=== PATIENT | female | born 1960 | race African-American/Black ===

== ENCOUNTER → 2016-05-16 | Outpatient (CLI) | payer MEDICAID ==
[~2016-05-16] MED LIST: ASPIR LOW81 MG PO; CELEXA 20MG20 MG/TA1 PO; CREON 60000 U-11 ECC; INSULIN HUMA100 U/ML; KLOR-CON M1515 MEQ PO; LANTUS100 U/ML SQ; LISINOPRIL AND1 TA1 PO; MYRBETRIQ50 MG PO; OMEPRAZOLE40 MG PO; RANITIDINE HCL300 M1 PO; ROSUVASTATIN CA10 MG PO; TIAZAC240 M1 PO; VALIUM 5MG T5 MG/TAB PO; ZOLPIDEM TART10 MG PO
== END ==
LOC: LAB 13:48
DX: I10 Essential (primary) hypertension (principal); E78.2 Mixed hyperlipidemia; E10.65 Type 1 diabetes mellitus with hyperglycemia

== ENCOUNTER → 2016-11-15 | Outpatient (CLI) | payer MEDICAID ==
[2016-01-19 11:35] VITALS: BP 142/88
== END ==
LOC: LAB 12:12
DX: E10.8 Type 1 diabetes mellitus with unspecified complications (principal); B18.2 Chronic viral hepatitis C; I10 Essential (primary) hypertension; E78.5 Hyperlipidemia, unspecified

== ENCOUNTER → 2017-02-14 | Outpatient (CLI) | payer MEDICAID ==
[2016-01-19 11:35] VITALS: BP 142/88
[2017-02-14 15:47] LABS: EOS # 0.1 (0.04-0.40); EOS % 0.7 % (1.0-5.0); HEMATOCRIT 43.6 % (37.0-47.0); HEMOGLOBIN 14.6 g/dL (12.5-16.0); LYMPH# 2.3 (1.50-4.00); MEAN CELL VOLUME 88 fl (78-100); MEAN CORPUSCULAR HEMOGLOBIN 30 pg (27-31); MEAN CORPUSCULAR HGB CONC 34 g/dL (33-37); MEAN PLATELET VOLUME 10.7 fl (7.4-10.4); MONO # 0.5 (0.20-0.80); NEU # 5.7 (1.40-6.50); PLATELET COUNT 292 K/mm3 (130-400); RED BLOOD COUNT 4.94 M/mm3 (4.10-5.30); RED CELL DISTRIBUTION WIDTH 13.9 % (11.5-14.5); WHITE BLOOD COUNT 8.6 K/mm3 (4.8-10.8)
[2017-02-14 16:02] LABS: BUN/CREATININE RATIO 11.3 (6.0-26.0); CALCIUM 9.2 mg/dL (8.4-10.2); POTASSIUM 4.3 mmol/L (3.6-5.0); TOTAL BILIRUBIN 0.7 mg/dL (0.2-1.3); TOTAL PROTEIN 7.7 g/dL (6.3-8.2)
[2017-02-14 16:19] LABS: URINE APPEARANCE CLEAR; URINE BILIRUBIN NEGATIVE (NEGATIVE); URINE BLOOD NEGATIVE (NEGATIVE); URINE COLOR YELLOW; URINE KETONE NEGATIVE (NEGATIVE); URINE LEUKOCYTE ESTERASE NEGATIVE (NEGATIVE); URINE NITRATE NEGATIVE (NEGATIVE); URINE PROTEIN(semi-quant) NEGATIVE (NEGATIVE); URINE UROBILINOGEN NORMAL (NORMAL)
== END ==
LOC: LAB 15:28
PROVIDERS: Internal Medicine
DX: E10.65 Type 1 diabetes mellitus with hyperglycemia (principal); K86.1 Other chronic pancreatitis; R32 Unspecified urinary incontinence

== ENCOUNTER → 2017-05-09 | Outpatient (CLI) | payer MEDICAID ==
[2016-01-19 11:35] VITALS: BP 142/88
[2017-05-09 16:34] LABS: EOS # 0.1 (0.04-0.40); EOS % 1.2 % (1.0-5.0); HEMATOCRIT 42.5 % (37.0-47.0); HEMOGLOBIN 13.8 g/dL (12.5-16.0); LYMPH# 2.5 (1.50-4.00); MEAN CELL VOLUME 89 fl (78-100); MEAN CORPUSCULAR HEMOGLOBIN 29 pg (27-31); MEAN CORPUSCULAR HGB CONC 33 g/dL (33-37); MEAN PLATELET VOLUME 10.6 fl (7.4-10.4); MONO # 0.5 (0.20-0.80); PLATELET COUNT 251 K/mm3 (130-400); RED BLOOD COUNT 4.77 M/mm3 (4.10-5.30); RED CELL DISTRIBUTION WIDTH 13.8 % (11.5-14.5)
[2017-05-09 16:59] LABS: BUN/CREATININE RATIO 11.9 (6.0-26.0); CALCIUM 9.2 mg/dL (8.4-10.2); POTASSIUM 3.7 mmol/L (3.6-5.0); TOTAL BILIRUBIN 0.5 mg/dL (0.2-1.3); TOTAL PROTEIN 7.5 g/dL (6.3-8.2)
[2017-05-09 18:48] LABS: ERYTHROCYTE SEDIMENTATION RATE 16 mm/hr (0-30)
== END ==
LOC: LAB 16:16
PROVIDERS: Internal Medicine
DX: K86.1 Other chronic pancreatitis (principal); E10.65 Type 1 diabetes mellitus with hyperglycemia; R19.7 Diarrhea, unspecified

== ENCOUNTER → 2017-06-06 | Outpatient (CLI) | payer MEDICAID ==
[2016-01-19 11:35] VITALS: BP 142/88
[2017-06-06 16:50] LABS: EOS % 0.3 % (1.0-5.0); HEMATOCRIT 46.5 % (37.0-47.0); LYMPH# 2.6 (1.50-4.00); MEAN CELL VOLUME 90 fl (78-100); MEAN CORPUSCULAR HEMOGLOBIN 29 pg (27-31); MEAN CORPUSCULAR HGB CONC 32 g/dL (33-37); MEAN PLATELET VOLUME 10.7 fl (7.4-10.4); MONO # 0.8 (0.20-0.80); NEU # 8.9 (1.40-6.50); PLATELET COUNT 327 K/mm3 (130-400); RED BLOOD COUNT 5.16 M/mm3 (4.10-5.30); RED CELL DISTRIBUTION WIDTH 13.3 % (11.5-14.5); WHITE BLOOD COUNT 12.4 K/mm3 (4.8-10.8)
[2017-06-06 16:59] LABS: ALBUMIN 4.2 g/dL (3.5-5.0); BUN/CREATININE RATIO 8.2 (6.0-26.0); POTASSIUM 3.8 mmol/L (3.6-5.0); TOTAL BILIRUBIN 0.8 mg/dL (0.2-1.3); TOTAL PROTEIN 8.3 g/dL (6.3-8.2)
== END ==
LOC: LAB 16:10
PROVIDERS: Internal Medicine
DX: E10.65 Type 1 diabetes mellitus with hyperglycemia (principal); K86.1 Other chronic pancreatitis; Z88.5 Allergy status to narcotic agent

== ENCOUNTER → 2017-08-11 | Outpatient (CLI) | payer MEDICAID ==
[~2017-08-11] VITALS: Ht 165.1 cm; Wt 88.2 kg
[2017-08-11 13:15] VITALS: BP 135/77
[2017-08-11 13:40] LABS: EOS # 0.1 (0.04-0.40); EOS % 1.2 % (1.0-5.0); HEMATOCRIT 42.6 % (37.0-47.0); HEMOGLOBIN 13.9 g/dL (12.5-16.0); LYMPH# 2.4 (1.50-4.00); MEAN CELL VOLUME 89 fl (78-100); MEAN CORPUSCULAR HEMOGLOBIN 29 pg (27-31); MEAN CORPUSCULAR HGB CONC 33 g/dL (33-37); MEAN PLATELET VOLUME 11.4 fl (7.4-10.4); MONO # 0.6 (0.20-0.80); NEU # 5.2 (1.40-6.50); PLATELET COUNT 234 K/mm3 (130-400); RED BLOOD COUNT 4.77 M/mm3 (4.10-5.30); RED CELL DISTRIBUTION WIDTH 14.2 % (11.5-14.5); WHITE BLOOD COUNT 8.2 K/mm3 (4.8-10.8)
[2017-08-11 14:28] LABS: BUN/CREATININE RATIO 12.2 (6.0-26.0); POTASSIUM 3.5 mmol/L (3.6-5.0); TOTAL BILIRUBIN 0.4 mg/dL (0.2-1.3); TOTAL PROTEIN 7.4 g/dL (6.3-8.2)
[2017-08-11 14:55] LABS: ERYTHROCYTE SEDIMENTATION RATE 21 mm/hr (0-30)
== END ==
LOC: AMSURD 12:33
PROVIDERS: Internal Medicine
DX: E10.65 Type 1 diabetes mellitus with hyperglycemia (principal); E78.2 Mixed hyperlipidemia; I10 Essential (primary) hypertension; I49.3 Ventricular premature depolarization

== ENCOUNTER → 2017-12-11 | Outpatient (CLI) | payer MEDICAID ==
[~2017-12-11] VITALS: Ht 167.6 cm; Wt 89.5 kg
[~2017-12-11] MED LIST changes: +ACCU-CHEK AVIV1 EACH MC; +ANUSOL-HC25 MG TP; -CREON 60000 U-11 ECC; +CREON 60000 U-11 ECC PO; +DESVENLAFAXINE50 M1 PO; +ERGOCALCIFER50000 IU PO; +MYRBETRIQ25 MG PO; +SYSTANE ULTRA 010 M1 OP
[2017-12-11 14:31] LABS: ALBUMIN 4.1 g/dL (3.5-5.0); CALCIUM 9.3 mg/dL (8.4-10.2); POTASSIUM 4.1 mmol/L (3.6-5.0); TOTAL BILIRUBIN 0.6 mg/dL (0.2-1.3); TOTAL PROTEIN 7.4 g/dL (6.3-8.2)
[2017-12-11 14:33] LABS: EOS # 0.2 (0.04-0.40); EOS % 2.6 % (1.0-5.0); HEMATOCRIT 41.6 % (37.0-47.0); HEMOGLOBIN 14.1 g/dL (12.5-16.0); LYMPH# 2.2 (1.50-4.00); MEAN CELL VOLUME 89 fl (78-100); MEAN CORPUSCULAR HEMOGLOBIN 30 pg (27-31); MEAN CORPUSCULAR HGB CONC 34 g/dL (33-37); MEAN PLATELET VOLUME 11.3 fl (7.4-10.4); MONO # 0.5 (0.20-0.80); NEU # 4.1 (1.40-6.50); PLATELET COUNT 216 K/mm3 (130-400); RED BLOOD COUNT 4.67 M/mm3 (4.10-5.30); RED CELL DISTRIBUTION WIDTH 13.5 % (11.5-14.5)
[2017-12-11 14:45] VITALS: BP 130/78
[2017-12-13 03:24] LABS: HEPATITIS C VIRUS ANTIBODY Reactive (Negative)
== END ==
LOC: AMSURD 13:57
PROVIDERS: Internal Medicine
DX: Z01.818 Encounter for other preprocedural examination (principal); R32 Unspecified urinary incontinence

== ENCOUNTER → 2018-01-23 | Outpatient (CLI) | payer MEDICAID ==
[2017-12-11 14:45] VITALS: BP 130/78
== END ==
LOC: MAMMO 01-09 10:00 → RAD 01-09 10:00
DX: Z13.820 Encounter for screening for osteoporosis (principal)

== ENCOUNTER → 2018-07-06 | Outpatient (CLI) | payer MEDICAID ==
[2017-12-11 14:45] VITALS: BP 130/78
[2018-07-06 12:52] LABS: EOS # 0.2 (0.04-0.40); EOS % 2.6 % (1.0-5.0); HEMATOCRIT 42.1 % (37.0-47.0); HEMOGLOBIN 13.5 g/dL (12.5-16.0); MEAN CELL VOLUME 90 fl (78-100); MEAN CORPUSCULAR HEMOGLOBIN 29 pg (27-31); MEAN CORPUSCULAR HGB CONC 32 g/dL (33-37); MEAN PLATELET VOLUME 10.9 fl (7.4-10.4); MONO # 0.6 (0.20-0.80); PLATELET COUNT 272 K/mm3 (130-400); RED CELL DISTRIBUTION WIDTH 13.8 % (11.5-14.5); WHITE BLOOD COUNT 7.8 K/mm3 (4.8-10.8)
[2018-07-06 12:54] LABS: ALBUMIN 4.4 g/dL (3.5-5.0); CALCIUM 9.3 mg/dL (8.4-10.2); TOTAL BILIRUBIN 0.4 mg/dL (0.2-1.3); TOTAL PROTEIN 7.7 g/dL (6.3-8.2)
[2018-07-06 13:05] LABS: POTASSIUM 3.9 mmol/L (3.6-5.0)
== END ==
LOC: MAMMO 11:38
PROVIDERS: Internal Medicine
DX: Z12.31 Encounter for screening mammogram for malignant neoplasm of breast (principal); E78.5 Hyperlipidemia, unspecified; I10 Essential (primary) hypertension; E10.9 Type 1 diabetes mellitus without complications

== ENCOUNTER → 2018-08-21 | Outpatient (CLI) | payer MEDICAID ==
[2017-12-11 14:45] VITALS: BP 130/78
[2018-08-21 14:53] LABS: EOS # 0.1 (0.04-0.40); EOS % 1.5 % (1.0-5.0); HEMOGLOBIN 9.9 g/dL (12.5-16.0); LYMPH# 1.6 (1.50-4.00); MEAN CELL VOLUME 93 fl (78-100); MEAN CORPUSCULAR HEMOGLOBIN 29 pg (27-31); MEAN CORPUSCULAR HGB CONC 31 g/dL (33-37); MEAN PLATELET VOLUME 9.9 fl (7.4-10.4); MONO # 0.5 (0.20-0.80); NEU # 5.6 (1.40-6.50); PLATELET COUNT 437 K/mm3 (130-400); RED BLOOD COUNT 3.44 M/mm3 (4.10-5.30); RED CELL DISTRIBUTION WIDTH 15.8 % (11.5-14.5); WHITE BLOOD COUNT 7.8 K/mm3 (4.8-10.8)
[2018-08-21 15:08] LABS: ALBUMIN 3.3 g/dL (3.5-5.0); CALCIUM 9.4 mg/dL (8.4-10.2); POTASSIUM 5.1 mmol/L (3.5-5.1); TOTAL BILIRUBIN 0.3 mg/dL (0.2-1.2); TOTAL PROTEIN 7.5 g/dL (6.4-8.3)
== END ==
LOC: LAB 14:26
PROVIDERS: Internal Medicine
DX: Z01.818 Encounter for other preprocedural examination (principal); E10.9 Type 1 diabetes mellitus without complications; I10 Essential (primary) hypertension; E78.5 Hyperlipidemia, unspecified; D64.9 Anemia, unspecified; R32 Unspecified urinary incontinence

== ENCOUNTER → 2018-12-21 | Outpatient (CLI) | payer MEDICAID ==
[2017-12-11 14:45] VITALS: BP 130/78
[2018-12-21 14:38] LABS: EOS # 0.2 (0.04-0.40); HEMATOCRIT 42.5 % (37.0-47.0); HEMOGLOBIN 13.8 g/dL (12.5-16.0); LYMPH# 3.2 (1.50-4.00); MEAN CELL VOLUME 86 fl (78-100); MEAN CORPUSCULAR HEMOGLOBIN 28 pg (27-31); MEAN CORPUSCULAR HGB CONC 33 g/dL (33-37); MEAN PLATELET VOLUME 11.1 fl (7.4-10.4); MONO # 0.7 (0.20-0.80); NEU # 3.8 (1.40-6.50); PLATELET COUNT 225 K/mm3 (130-400); RED BLOOD COUNT 4.92 M/mm3 (4.10-5.30); RED CELL DISTRIBUTION WIDTH 13.8 % (11.5-14.5)
[2018-12-21 14:45] LABS: ALBUMIN 4.2 g/dL (3.5-5.0); POTASSIUM 3.5 mmol/L (3.5-5.1)
[2018-12-21 14:46] LABS: CALCIUM 9.7 mg/dL (8.3-10.5)
[2018-12-21 14:48] LABS: TOTAL PROTEIN 7.7 g/dL (6.4-8.3)
[2018-12-21 14:49] LABS: TOTAL BILIRUBIN 0.5 mg/dL (0.2-1.2)
== END ==
LOC: LAB 14:20
PROVIDERS: Internal Medicine
DX: Z01.818 Encounter for other preprocedural examination (principal); E10.65 Type 1 diabetes mellitus with hyperglycemia; I10 Essential (primary) hypertension; N39.46 Mixed incontinence; E78.2 Mixed hyperlipidemia

== ENCOUNTER → 2019-03-18 | Outpatient (CLI) | payer MEDICAID ==
[2017-12-11 14:45] VITALS: BP 130/78
[2019-03-18 14:16] LABS: ALBUMIN 4.1 g/dL (3.5-5.0)
[2019-03-18 14:17] LABS: POTASSIUM 4.2 mmol/L (3.5-5.1)
[2019-03-18 14:18] LABS: CALCIUM 9.2 mg/dL (8.3-10.5)
[2019-03-18 14:19] LABS: EOS # 0.1 (0.04-0.40); EOS % 1.8 % (1.0-5.0); HEMATOCRIT 41.6 % (37.0-47.0); HEMOGLOBIN 13.2 g/dL (12.5-16.0); LYMPH# 2.4 (1.50-4.00); MEAN CELL VOLUME 90 fl (78-100); MEAN CORPUSCULAR HEMOGLOBIN 29 pg (27-31); MEAN CORPUSCULAR HGB CONC 32 g/dL (33-37); MEAN PLATELET VOLUME 11.3 fl (7.4-10.4); MONO # 0.6 (0.20-0.80); NEU # 4.4 (1.40-6.50); PLATELET COUNT 263 K/mm3 (130-400); RED CELL DISTRIBUTION WIDTH 14.1 % (11.5-14.5); TOTAL PROTEIN 7.6 g/dL (6.4-8.3); WHITE BLOOD COUNT 7.6 K/mm3 (4.8-10.8)
[2019-03-18 14:21] LABS: TOTAL BILIRUBIN 0.3 mg/dL (0.2-1.2)
== END ==
LOC: LAB 13:58
PROVIDERS: Internal Medicine
DX: E10.65 Type 1 diabetes mellitus with hyperglycemia (principal); I10 Essential (primary) hypertension

== ENCOUNTER → 2019-05-13 | Outpatient (CLI) | payer MEDICAID ==
[2017-12-11 14:45] VITALS: BP 130/78
[2019-05-13 14:55] LABS: EOS # 0.2 (0.04-0.40); EOS % 2.1 % (1.0-5.0); HEMOGLOBIN 13.8 g/dL (12.5-16.0); LYMPH# 2.9 (1.50-4.00); MEAN CELL VOLUME 90 fl (78-100); MEAN CORPUSCULAR HEMOGLOBIN 29 pg (27-31); MEAN CORPUSCULAR HGB CONC 32 g/dL (33-37); MEAN PLATELET VOLUME 11.1 fl (7.4-10.4); MONO # 0.7 (0.20-0.80); NEU # 5.1 (1.40-6.50); PLATELET COUNT 242 K/mm3 (130-400); RED BLOOD COUNT 4.78 M/mm3 (4.10-5.30); RED CELL DISTRIBUTION WIDTH 13.5 % (11.5-14.5); WHITE BLOOD COUNT 8.9 K/mm3 (4.8-10.8)
[2019-05-13 14:58] LABS: ALBUMIN 4.3 g/dL (3.5-5.0); POTASSIUM 3.5 mmol/L (3.5-5.1)
[2019-05-13 15:00] LABS: CALCIUM 9.3 mg/dL (8.3-10.5)
[2019-05-13 15:01] LABS: TOTAL PROTEIN 7.9 g/dL (6.4-8.3)
[2019-05-13 15:03] LABS: TOTAL BILIRUBIN 0.3 mg/dL (0.2-1.2)
== END ==
LOC: LAB 14:10
PROVIDERS: Internal Medicine
DX: E10.65 Type 1 diabetes mellitus with hyperglycemia (principal); I10 Essential (primary) hypertension; D64.9 Anemia, unspecified

== ENCOUNTER → 2019-07-18 | Outpatient (CLI) | payer MEDICAID ==
[2017-12-11 14:45] VITALS: BP 130/78
[2019-07-18 14:35] LABS: URINE APPEARANCE CLOUDY; URINE BILIRUBIN NEGATIVE (NEGATIVE); URINE BLOOD NEGATIVE (NEGATIVE); URINE COLOR YELLOW; URINE GLUCOSE NEGATIVE (NEGATIVE); URINE KETONE NEGATIVE (NEGATIVE); URINE LEUKOCYTE ESTERASE NEGATIVE (NEGATIVE); URINE NITRATE NEGATIVE (NEGATIVE); URINE PROTEIN(semi-quant) TRACE mg/dL (NEGATIVE); URINE UROBILINOGEN NORMAL (NORMAL)
[2019-07-18 14:36] LABS: URINE MUCUS PRESENT (NOT PRESENT)
== END ==
LOC: LAB 11:01
PROVIDERS: Internal Medicine
DX: L63.0 Alopecia (capitis) totalis (principal); N30.00 Acute cystitis without hematuria

== ENCOUNTER → 2019-07-30 | Outpatient (CLI) | payer MEDICAID ==
[2017-12-11 14:45] VITALS: BP 130/78
== END ==
LOC: MAMMO 15:11
DX: Z12.31 Encounter for screening mammogram for malignant neoplasm of breast (principal)

== ENCOUNTER → 2019-08-15 | Outpatient (CLI) | payer MEDICAID ==
[2017-12-11 14:45] VITALS: BP 130/78
[2019-08-15 16:04] LABS: EOS # 0.2 (0.04-0.40); HEMATOCRIT 43.2 % (37.0-47.0); HEMOGLOBIN 14.1 g/dL (12.5-16.0); LYMPH# 2.6 (1.50-4.00); MEAN CELL VOLUME 89 fl (78-100); MEAN CORPUSCULAR HEMOGLOBIN 29 pg (27-31); MEAN CORPUSCULAR HGB CONC 33 g/dL (33-37); MEAN PLATELET VOLUME 10.7 fl (7.4-10.4); MONO # 0.6 (0.20-0.80); NEU # 5.5 (1.40-6.50); PLATELET COUNT 273 K/mm3 (130-400); RED BLOOD COUNT 4.84 M/mm3 (4.10-5.30); WHITE BLOOD COUNT 8.9 K/mm3 (4.8-10.8)
[2019-08-15 16:20] LABS: ALBUMIN 4.2 g/dL (3.4-4.8); POTASSIUM 3.9 mmol/L (3.5-5.1)
[2019-08-15 16:21] LABS: CALCIUM 9.4 mg/dL (8.3-10.5)
[2019-08-15 16:23] LABS: TOTAL PROTEIN 7.7 g/dL (6.2-8.1)
[2019-08-15 16:24] LABS: TOTAL BILIRUBIN 0.3 mg/dL (0.2-1.2)
== END ==
LOC: RAD 15:49
PROVIDERS: Internal Medicine
DX: R06.02 Shortness of breath (principal)

== ENCOUNTER → 2019-11-14 | Outpatient (CLI) | payer MEDICAID ==
[2017-12-11 14:45] VITALS: BP 130/78
[2019-11-14 16:13] LABS: EOS # 0.3 (0.04-0.40); HEMATOCRIT 40.4 % (37.0-47.0); HEMOGLOBIN 13.1 g/dL (12.5-16.0); LYMPH# 2.5 (1.50-4.00); MEAN CELL VOLUME 90 fl (78-100); MEAN CORPUSCULAR HEMOGLOBIN 29 pg (27-31); MEAN CORPUSCULAR HGB CONC 32 g/dL (33-37); MEAN PLATELET VOLUME 10.9 fl (7.4-10.4); MONO # 0.7 (0.20-0.80); PLATELET COUNT 233 K/mm3 (130-400); RED CELL DISTRIBUTION WIDTH 13.6 % (11.5-14.5); WHITE BLOOD COUNT 8.4 K/mm3 (4.8-10.8)
[2019-11-14 17:51] LABS: ALBUMIN 4.1 g/dL (3.4-4.8); POTASSIUM 3.5 mmol/L (3.5-5.1)
[2019-11-14 17:54] LABS: TOTAL PROTEIN 7.3 g/dL (6.2-8.1)
[2019-11-14 17:56] LABS: TOTAL BILIRUBIN 0.3 mg/dL (0.2-1.2)
== END ==
LOC: LAB 15:48
PROVIDERS: Internal Medicine
DX: E10.65 Type 1 diabetes mellitus with hyperglycemia (principal); I10 Essential (primary) hypertension; D64.9 Anemia, unspecified

== ENCOUNTER → 2019-12-23 | Outpatient (CLI) | payer MEDICAID ==
[2017-12-11 14:45] VITALS: BP 130/78
[2019-12-23 14:41] LABS: EOS # 0.2 (0.04-0.40); EOS % 2.6 % (1.0-5.0); HEMATOCRIT 42.9 % (37.0-47.0); LYMPH# 2.2 (1.50-4.00); MEAN CELL VOLUME 88 fl (78-100); MEAN CORPUSCULAR HEMOGLOBIN 29 pg (27-31); MEAN CORPUSCULAR HGB CONC 33 g/dL (33-37); MEAN PLATELET VOLUME 10.8 fl (7.4-10.4); MONO # 0.5 (0.20-0.80); NEU # 4.4 (1.40-6.50); PLATELET COUNT 241 K/mm3 (130-400); RED BLOOD COUNT 4.86 M/mm3 (4.10-5.30); RED CELL DISTRIBUTION WIDTH 13.8 % (11.5-14.5); WHITE BLOOD COUNT 7.4 K/mm3 (4.8-10.8)
[2019-12-23 14:52] LABS: ALBUMIN 4.2 g/dL (3.4-4.8); POTASSIUM 3.5 mmol/L (3.5-5.1)
[2019-12-23 14:53] LABS: CALCIUM 9.5 mg/dL (8.3-10.5)
[2019-12-23 14:55] LABS: TOTAL PROTEIN 7.5 g/dL (6.2-8.1)
[2019-12-23 14:56] LABS: TOTAL BILIRUBIN 0.2 mg/dL (0.2-1.2)
== END ==
LOC: LAB 14:29
PROVIDERS: Internal Medicine
DX: E10.65 Type 1 diabetes mellitus with hyperglycemia (principal); D64.9 Anemia, unspecified; I10 Essential (primary) hypertension; K90.9 Intestinal malabsorption, unspecified

== ENCOUNTER → 2020-03-30 | Outpatient (CLI) | payer MEDICAID ==
[2017-12-11 14:45] VITALS: BP 130/78
[2020-03-30 16:22] LABS: EOS # 0.1 (0.04-0.40); EOS % 1.4 % (1.0-5.0); HEMATOCRIT 43.5 % (37.0-47.0); HEMOGLOBIN 14.1 g/dL (12.5-16.0); LYMPH# 3.1 (1.50-4.00); MEAN CELL VOLUME 90 fl (78-100); MEAN CORPUSCULAR HEMOGLOBIN 29 pg (27-31); MEAN CORPUSCULAR HGB CONC 32 g/dL (33-37); MEAN PLATELET VOLUME 10.4 fl (7.4-10.4); MONO # 0.7 (0.20-0.80); NEU # 6.2 (1.40-6.50); PLATELET COUNT 284 K/mm3 (130-400); RED BLOOD COUNT 4.83 M/mm3 (4.10-5.30); RED CELL DISTRIBUTION WIDTH 13.5 % (11.5-14.5); WHITE BLOOD COUNT 10.2 K/mm3 (4.8-10.8)
[2020-03-30 16:31] LABS: ALBUMIN 4.2 g/dL (3.4-4.8); POTASSIUM 3.3 mmol/L (3.5-5.1)
[2020-03-30 16:32] LABS: CALCIUM 9.4 mg/dL (8.3-10.5)
[2020-03-30 16:33] LABS: TOTAL PROTEIN 7.9 g/dL (6.2-8.1)
[2020-03-30 16:35] LABS: TOTAL BILIRUBIN 0.3 mg/dL (0.2-1.2)
== END ==
LOC: LAB 16:10
PROVIDERS: Internal Medicine
DX: I10 Essential (primary) hypertension (principal); E78.2 Mixed hyperlipidemia; E10.65 Type 1 diabetes mellitus with hyperglycemia

== ENCOUNTER → 2020-08-13 | Outpatient (CLI) | payer MEDICAID ==
[2017-12-11 14:45] VITALS: BP 130/78
[2020-08-13 14:43] LABS: BASO # 0.06 (0.02-0.10); EOS # 0.28 (0.04-0.40); HEMATOCRIT 42.7 % (37.0-47.0); HEMOGLOBIN 13.9 g/dL (12.5-16.0); LYMPH# 3.09 (1.50-4.00); MEAN CELL VOLUME 90 fl (78-100); MEAN CORPUSCULAR HEMOGLOBIN 29 pg (27-31); MEAN CORPUSCULAR HGB CONC 33 g/dL (33-37); MEAN PLATELET VOLUME 10.5 fl (7.4-10.4); MONO # 0.61 (0.20-0.80); NEU # 5.22 (1.40-6.50); PLATELET COUNT 274 K/mm3 (130-400); RED BLOOD COUNT 4.77 M/mm3 (4.10-5.30); RED CELL DISTRIBUTION WIDTH 12.6 % (11.5-14.5); WHITE BLOOD COUNT 9.3 K/mm3 (4.8-10.8)
[2020-08-13 14:48] LABS: POTASSIUM 3.6 mmol/L (3.5-5.1)
[2020-08-13 14:49] LABS: CALCIUM 9.4 mg/dL (8.3-10.5)
[2020-08-13 14:51] LABS: TOTAL PROTEIN 7.5 g/dL (6.2-8.1)
[2020-08-13 14:52] LABS: TOTAL BILIRUBIN 0.3 mg/dL (0.2-1.2)
[2020-08-13 14:57] LABS: MAGNESIUM 2.3 mg/dL (1.60-2.60)
== END ==
LOC: MAMMO 14:00 → LAB 14:20 → MAMMO 14:20
PROVIDERS: Internal Medicine
DX: Z12.31 Encounter for screening mammogram for malignant neoplasm of breast (principal); E78.2 Mixed hyperlipidemia; E10.65 Type 1 diabetes mellitus with hyperglycemia; I10 Essential (primary) hypertension; K90.9 Intestinal malabsorption, unspecified

== ENCOUNTER → 2021-03-12 | Outpatient (CLI) | payer MEDICAID ==
[2021-03-12 09:16] LABS: BASO # 0.04 K/mm3 (0.02-0.10); EOS # 0.15 K/mm3 (0.04-0.40); EOS % 1.6 % (1.0-5.0); HEMATOCRIT 42.3 % (37.0-47.0); HEMOGLOBIN 13.7 g/dL (12.5-16.0); LYMPH# 2.19 K/mm3 (1.50-4.00); MEAN CELL VOLUME 91 fl (78-100); MEAN CORPUSCULAR HEMOGLOBIN 30 pg (27-31); MEAN CORPUSCULAR HGB CONC 32 g/dL (33-37); MEAN PLATELET VOLUME 10.7 fl (7.4-10.4); NEU # 6.23 K/mm3 (1.40-6.50); PLATELET COUNT 260 K/mm3 (130-400); RED BLOOD COUNT 4.64 M/mm3 (4.10-5.30); RED CELL DISTRIBUTION WIDTH 13.1 % (11.5-14.5); WHITE BLOOD COUNT 9.2 K/mm3 (4.8-10.8)
[2021-03-12 09:29] LABS: POTASSIUM 3.6 mmol/L (3.5-5.1)
[2021-03-12 09:30] LABS: CALCIUM 9.6 mg/dL (8.3-10.5)
[2021-03-12 09:32] LABS: TOTAL PROTEIN 7.6 g/dL (6.2-8.1)
[2021-03-12 09:33] LABS: TOTAL BILIRUBIN 0.4 mg/dL (0.2-1.2)
[2021-03-12 09:38] LABS: MAGNESIUM 2.01 mg/dL (1.60-2.60)
== END ==
LOC: LAB 08:38
PROVIDERS: Internal Medicine
DX: E10.65 Type 1 diabetes mellitus with hyperglycemia (principal); K90.9 Intestinal malabsorption, unspecified; I10 Essential (primary) hypertension

== ENCOUNTER → 2021-04-20 | Outpatient (CLI) | payer MEDICAID ==
[2021-04-20 16:07] LABS: URINE APPEARANCE CLEAR; URINE BILIRUBIN NEGATIVE (NEGATIVE); URINE BLOOD NEGATIVE (NEGATIVE); URINE COLOR YELLOW; URINE GLUCOSE NEGATIVE (NEGATIVE); URINE KETONE NEGATIVE (NEGATIVE); URINE LEUKOCYTE ESTERASE NEGATIVE (NEGATIVE); URINE NITRATE NEGATIVE (NEGATIVE); URINE PROTEIN(semi-quant) 1+ (NEGATIVE); URINE UROBILINOGEN NORMAL (NORMAL); URINE WBC 0-1 /hpf (0-3)
[2021-04-21 00:22] LABS: CREATININE OTHER SOURCE 81 mg/dL (())
== END ==
LOC: LAB 14:28
PROVIDERS: Internal Medicine
DX: N39.46 Mixed incontinence (principal)

== ENCOUNTER → 2021-07-16 | Outpatient (CLI) | payer MEDICAID ==
[2021-07-16 15:33] LABS: BASO # 0.02 K/mm3 (0.02-0.10); EOS # 0.07 K/mm3 (0.04-0.40); EOS % 0.8 % (1.0-5.0); HEMATOCRIT 42.4 % (37.0-47.0); HEMOGLOBIN 13.7 g/dL (12.5-16.0); LYMPH# 2.27 K/mm3 (1.50-4.00); MEAN CELL VOLUME 91 fl (78-100); MEAN CORPUSCULAR HEMOGLOBIN 29 pg (27-31); MEAN CORPUSCULAR HGB CONC 32 g/dL (33-37); MEAN PLATELET VOLUME 10.5 fl (7.4-10.4); MONO # 0.51 K/mm3 (0.20-0.80); NEU # 5.58 K/mm3 (1.40-6.50); PLATELET COUNT 263 K/mm3 (130-400); RED BLOOD COUNT 4.68 M/mm3 (4.10-5.30); WHITE BLOOD COUNT 8.5 K/mm3 (4.8-10.8)
[2021-07-16 15:43] LABS: ALBUMIN 4.2 g/dL (3.4-4.8); POTASSIUM 3.8 mmol/L (3.5-5.1)
[2021-07-16 15:44] LABS: CALCIUM 10.1 mg/dL (8.3-10.5)
[2021-07-16 15:47] LABS: TOTAL BILIRUBIN 0.4 mg/dL (0.2-1.2)
[2021-07-16 15:52] LABS: MAGNESIUM 2.11 mg/dL (1.60-2.60)
== END ==
LOC: LAB 15:20
PROVIDERS: Internal Medicine
DX: Z12.31 Encounter for screening mammogram for malignant neoplasm of breast (principal); N39.46 Mixed incontinence; I10 Essential (primary) hypertension; E10.65 Type 1 diabetes mellitus with hyperglycemia; F41.8 Other specified anxiety disorders; H26.9 Unspecified cataract; K59.09 Other constipation

== ENCOUNTER → 2021-10-05 | Outpatient (CLI) | payer MEDICAID ==
[2021-10-05 16:24] LABS: BASO # 0.04 K/mm3 (0.02-0.10); EOS # 0.21 K/mm3 (0.04-0.40); EOS % 2.6 % (1.0-5.0); HEMATOCRIT 42.5 % (37.0-47.0); HEMOGLOBIN 13.7 g/dL (12.5-16.0); LYMPH# 2.73 K/mm3 (1.50-4.00); MEAN CELL VOLUME 91 fl (78-100); MEAN CORPUSCULAR HEMOGLOBIN 29 pg (27-31); MEAN CORPUSCULAR HGB CONC 32 g/dL (33-37); MEAN PLATELET VOLUME 10.6 fl (7.4-10.4); MONO # 0.54 K/mm3 (0.20-0.80); NEU # 4.39 K/mm3 (1.40-6.50); PLATELET COUNT 261 K/mm3 (130-400); RED BLOOD COUNT 4.66 M/mm3 (4.10-5.30); RED CELL DISTRIBUTION WIDTH 12.7 % (11.5-14.5); WHITE BLOOD COUNT 7.9 K/mm3 (4.8-10.8)
[2021-10-05 16:46] LABS: ALBUMIN 3.9 g/dL (3.4-4.8); POTASSIUM 3.4 mmol/L (3.5-5.1)
[2021-10-05 16:47] LABS: CALCIUM 9.3 mg/dL (8.3-10.5)
[2021-10-05 16:48] LABS: TOTAL PROTEIN 7.4 g/dL (6.2-8.1)
[2021-10-05 16:50] LABS: TOTAL BILIRUBIN 0.3 mg/dL (0.2-1.2)
[2021-10-05 16:55] LABS: MAGNESIUM 2.13 mg/dL (1.60-2.60)
== END ==
LOC: LAB 16:02
PROVIDERS: Internal Medicine
DX: E10.65 Type 1 diabetes mellitus with hyperglycemia (principal); N39.46 Mixed incontinence; F41.8 Other specified anxiety disorders; I10 Essential (primary) hypertension; H26.9 Unspecified cataract; K59.09 Other constipation; G63 Polyneuropathy in diseases classified elsewhere; M48.061 Spinal stenosis, lumbar region without neurogenic claudication

== ENCOUNTER → 2022-04-21 | Outpatient (CLI) | payer MEDICAID ==
[2022-04-21 12:05] LABS: POTASSIUM 3.6 mmol/L (3.5-5.1)
[2022-04-21 12:06] LABS: CALCIUM 9.8 mg/dL (8.3-10.5)
[2022-04-21 12:08] LABS: TOTAL PROTEIN 7.6 g/dL (6.2-8.1)
[2022-04-21 12:09] LABS: TOTAL BILIRUBIN 0.4 mg/dL (0.2-1.2)
[2022-04-21 12:14] LABS: MAGNESIUM 2.1 mg/dL (1.60-2.60)
== END ==
LOC: LAB 11:31
PROVIDERS: Internal Medicine
DX: E10.65 Type 1 diabetes mellitus with hyperglycemia (principal); I10 Essential (primary) hypertension; K86.1 Other chronic pancreatitis; H26.9 Unspecified cataract; F51.04 Psychophysiologic insomnia; M48.061 Spinal stenosis, lumbar region without neurogenic claudication; F41.9 Anxiety disorder, unspecified; E78.2 Mixed hyperlipidemia; K90.9 Intestinal malabsorption, unspecified; N39.46 Mixed incontinence; F41.8 Other specified anxiety disorders; G63 Polyneuropathy in diseases classified elsewhere

== ENCOUNTER → 2023-08-17 | Outpatient (CLI) | payer MEDICAID ==
[2023-10-08 13:46] LABS: CREATININE OTHER SOURCE 129.5
[2023-10-08 14:12] LABS: ALBUMIN 4.1 g/dL (3.4-4.8); CALCIUM 9.4 mg/dL (8.3-10.5); MAGNESIUM 2.19 mg/dL (1.60-2.60); TOTAL BILIRUBIN 0.2 mg/dL (0.2-1.2); TOTAL PROTEIN 7.5 g/dL (6.2-8.1)
[2023-10-08 14:14] LABS: URINE APPEARANCE CLEAR (CLEAR); URINE BILIRUBIN NEGATIVE (NEGATIVE); URINE BLOOD NEGATIVE (NEGATIVE); URINE COLOR YELLOW (YELLOW); URINE GLUCOSE NEGATIVE (NEGATIVE); URINE KETONE NEGATIVE (NEGATIVE); URINE LEUKOCYTE ESTERASE NEGATIVE (NEGATIVE); URINE NITRATE NEGATIVE (NEGATIVE); URINE PROTEIN(semi-quant) NEGATIVE (NEGATIVE); URINE WBC 0-1 /hpf (0-3)
[2023-10-08 14:15] LABS: BASO # 0.03 K/mm3 (0.02-0.10); EOS # 0.19 K/mm3 (0.04-0.40); EOS % 2.5 % (1.0-5.0); HEMATOCRIT 43.5 % (37.0-47.0); HEMOGLOBIN 14.3 g/dL (12.5-16.0); LYMPH# 2.59 K/mm3 (1.50-4.00); MEAN CELL VOLUME 89 fl (78-100); MEAN CORPUSCULAR HEMOGLOBIN 29 pg (27-31); MEAN CORPUSCULAR HGB CONC 33 g/dL (33-37); MEAN PLATELET VOLUME 10.6 fl (7.4-10.4); MONO # 0.46 K/mm3 (0.20-0.80); NEU # 4.34 K/mm3 (1.40-6.50); PLATELET COUNT 116 K/mm3 (130-400); RED CELL DISTRIBUTION WIDTH 13.6 % (11.5-14.5); URINE MUCUS PRESENT (NOT PRESENT); WHITE BLOOD COUNT 7.6 K/mm3 (4.8-10.8)
== END ==
LOC: LAB 12:30
PROVIDERS: Internal Medicine
DX: E10.65 Type 1 diabetes mellitus with hyperglycemia (principal); I10 Essential (primary) hypertension; E78.2 Mixed hyperlipidemia; K90.9 Intestinal malabsorption, unspecified

== ENCOUNTER → 2023-12-05 | Outpatient (CLI) | payer MEDICARE, MEDICAID | LOC: MAMMO 06:46 | DX: N60.02 Solitary cyst of left breast (principal); N63.11 Unspecified lump in the right breast, upper outer quadrant ==

== ENCOUNTER → 2023-12-14 | Outpatient (CLI) | payer MEDICARE, MEDICAID ==
[2023-12-14 15:42] LABS: BASO # 0.04 K/mm3 (0.02-0.10); EOS # 0.18 K/mm3 (0.04-0.40); EOS % 1.9 % (1.0-5.0); HEMATOCRIT 41.1 % (37.0-47.0); HEMOGLOBIN 13.5 g/dL (12.5-16.0); MEAN CELL VOLUME 89 fl (78-100); MEAN CORPUSCULAR HEMOGLOBIN 29 pg (27-31); MEAN CORPUSCULAR HGB CONC 33 g/dL (33-37); MEAN PLATELET VOLUME 10.8 fl (7.4-10.4); MONO # 0.68 K/mm3 (0.20-0.80); NEU # 5.45 K/mm3 (1.40-6.50); PLATELET COUNT 266 K/mm3 (130-400); RED CELL DISTRIBUTION WIDTH 13.1 % (11.5-14.5); WHITE BLOOD COUNT 9.4 K/mm3 (4.8-10.8)
[2023-12-14 15:49] LABS: ALBUMIN 4.1 g/dL (3.4-4.8)
[2023-12-14 15:50] LABS: CALCIUM 9.3 mg/dL (8.3-10.5)
[2023-12-14 15:52] LABS: TOTAL PROTEIN 7.4 g/dL (6.2-8.1)
[2023-12-14 15:53] LABS: TOTAL BILIRUBIN 0.3 mg/dL (0.2-1.2)
[2023-12-14 15:59] LABS: MAGNESIUM 2.01 mg/dL (1.60-2.60)
== END ==
LOC: LAB 15:23
PROVIDERS: Internal Medicine
DX: I10 Essential (primary) hypertension (principal); K90.9 Intestinal malabsorption, unspecified; E78.2 Mixed hyperlipidemia; E10.65 Type 1 diabetes mellitus with hyperglycemia